=== PATIENT | male | born 1990 | race Caucasian/White ===

== ENCOUNTER 2024-07-13 12:10 | Outpatient (REF) | payer MEDICARE, MEDICAID, SELFPAY ==
[2024-07-13 13:24] LABS: Hematocrit 41.9 % (42.0-52.0); Hemoglobin 13.5 g/dl (14.0-18.0); Mean Corpuscular HGB Conc 32.2 g/dl (31.0-36.0); Mean Corpuscular Hemoglobin 29.9 pg (27.0-33.0); Mean Corpuscular Volume 92.9 fL (80.0-98.0); Mean Platelet Volume 9.8 fL (9.4-12.4); Platelet Count 288 X10*3/uL (160-400); Red Blood Count 4.51 X10*6/uL (4.60-5.80); Red Cell Distribution Width 13.5 % (11.0-16.0); White Blood Count 5.6 X10*3/uL (4.8-10.8)
[2024-07-13 13:30] LABS: Estimated Average Glucose 108 mg/dL; Hemoglobin A1C 121.4948 umol/L; Hemoglobin A1c % 5.4 % (<6.0); Total Hemoglobin (HGBA1C) 3438.0487 umol/L
[2024-07-13 14:09] LABS: Alanine Aminotransferase 26 U/L (0-40); Albumin Level 4.3 g/dL (3.5-5.0); Alkaline Phosphatase 77 U/L (39-117); Anion Gap 10 (12-20); Aspartate Amino Transferase 24 U/L (5-37); Bilirubin Direct < 0.2 mg/dL (0.0-0.5); Bilirubin Total 0.2 mg/dL (0.0-1.0); Blood Urea Nitrogen 5 mg/dL (9-16); Calcium 9.4 mg/dL (8.4-10.2); Carbon Dioxide 29 mmol/L (22-29); Chloride 108 mmol/L (96-108); Cholesterol 147 mg/dL (<200); Estimated Glomerular Filt Rate > 60; Glucose Random 91 mg/dL (60-115); HBS Num1 138.26 mIU/mL (0-7.99); HBc Num1 0.17 S/CO (0.00-0.79); HBsAGNum1 0.33 S/CO (0.00-0.99); HDL Cholesterol 41 mg/dL (>40); HIV AB/AG Nonreactive (Nonreactive); HIV Num 1 0.09 S/CO (0.00-0.99); Hepatitis B Core Antibody Nonreactive (Nonreactive); Hepatitis B Surface Antigen Negative (Negative); LDL Cholesterol Calculated 76 mg/dL (<100); Potassium 3.8 mmol/L (3.3-5.1); Sodium 143 mmol/L (135-145); Total Protein 7.4 g/dL (6.5-8.0); Triglycerides 153 mg/dL (<150); ~Hepatitis B Surface Antibody REACTIVE (Nonreactive); ~Hepatitis C Antibody Nonreactive (Nonreactive)
[2024-07-13 14:11] LABS: Free T4 (Free Thyroxine) 1.02 ng/dL (0.71-1.85); Thyroid Stimulating Hormone 2.24 uIU/mL (0.32-4.0); Vitamin D 25-OH Total 13.2 ng/mL (>30)
--- OUTSIDE RECORDS SUMMARY | 2024-07-13 14:32 | XMS_ITS | Encounter Summary ---
Author Organization [employer] Address [address] [facility] [address] [place] [address] Care Team Providers Care Professor Of Oceanography Name Role Phone Unavailable Primary Care Provider Unavailabl e Reason for Referral * Consultation (Urgent) - Pending Review Specialty Diagnoses / Procedures Referred By Negin magallanes Referred To Contact Urology Diagnoses Encounter for contraceptive management, unspecified type Paulina Wong DO [address] [place] [phone] Phone: tel: fax: Referral ID Status Reason Start Date Expiration Date Visits Requested Visits Authorized [id number] Pending Review Specialty Services Required 07/13/2024 07/13/2025 1 1 * Medications - Closed Specialty Diagnoses / Procedures Referred By Negin magallanes Referred To Contact Diagnoses Moderate persistent asthma without complication Paulina Wong DO [address] [place] [phone] Phone: tel: fax: Referral ID Status Reason Start Date Expiration Date Visits Re quested Visits Authorized [id number] Closed 1 1 Encounter Details Date Type Department Care Team (Latest Contact Info) Description 07/13/2024 10:45 AM EDT Office Visit [facility] [address] [place] [phone] Paulina Wong DO [address] [place] [phone] Routine history and physical examination of adult (Primary Dx); Major depression, recurrent, chronic (CMS/HCC); Moderate persistent asthma without complication; Encounter for contraceptive management, unspecified type; Healthcare maintenance; BMI 35.0-35.9,adult; Obesity, class 1; Encounter for screening for diabetes mellitus; Encounter for screening for other viral diseases; Encounter for screening for infections with a predominantly sexual mode of transmission; Cannabis use, unspecified with withdrawal (CMS/HCC); Anxiety; Dietary counseling; Exercise counseling Social History Tobacco Use Types Packs/Day Years Used Date Smoking Tobacco: Every Day Cigarettes Smokeless Tobacco: Never Alcohol Use Standard Drinks/Week Comments Never 0 (1 standard drink = 0.6 oz pur e alcohol) Depression Answer Date Recorded Patient Health Questionnaire-9 Score 10 07/13/2024 Patient Health Questionnaire-9 Score 10 07/13/2024 Last PHQ-9: Questionnaire Data Not on file 0 07/13/2024 Housing Stability Answer Date Recorded What is your housing situation today? I have gisselle guerra 07/13/[address] you li ve. Do you have problems with any of the following? None of the above 07/13/2024 Food Insecurity Answer Date Recorded Within the past 12 months, y ou worried that your food would run out before you got money to buy more: Never True 07/13/2024 Within the past 12 months,th e food you bought just didn't last and you didn't have enough money to get more: Never True Transportation Answer Date Recorded In the past 12 months, has l ack of transportation kept you from medical appts, meetings, work or from getting things needed for daily living? No 07/13/2024 Utilities Answer Date Recorded In the past 12 months, has t he electric, gas, oil or water company threatened to shut off services in your home? No 07/13/2024 Depression Answer Date Recorded Patient Health Questionnaire-2 Score 4 07/13/2024 Internet Access Answer Date Recorded Internet Access Q1 Yes 07/13/2024 Internet Access Q2 Not on file 07/13/2024 Sex and Gender Information Value Date Recorded Sex Assigned at Male 07/13/2024 11:01 AM EDT Legal Sex Male 11:27 AM EDT Gender Identity Male 07/13/2024 11:01 AM EDT Sexual Orientation Straight 07/13/2024 11 :02 AM EDT documented as of this encounter Last Filed Vital Signs Vital Sign Reading Time Taken Comments Blood Pressure 124/70 07/13/2024 11:23 AM EDT Pulse 88 07/13/2024 11:23 AM EDT Temperature 36.2 ??C (97.1 ??F) 07/13/2024 11:23 AM E DT Respiratory Rate 21 07/13/2024 11:23 AM EDT Oxygen Saturation 96% 07/13/2024 11:23 AM EDT Inhaled Oxygen Concentration - - Weight 103 kg (227 lb) 07/13/2024 11:23 AM EDT Height 170.2 cm (5' 7 ) 07/13/2024 11:23 AM EDT Body Mass Index 35.55 07/13/2024 11:23 AM EDT documented in this encounter Plan of Treatment Scheduled Orders Name Type Priority Associated Diagnoses Orde r Schedule Chlamydia/N. Gonorrhoeae RNA, TMA, Urogenitial Microbiology Routine Routine history and physical examination of adult Major depression, recurrent, chronic (CMS/HCC) Moderate persistent asthma without complication BMI 35.0-35.9,adult Encounter for screening for infections with a predominantly sexual mode of transmission Ordered: 07/13/2024 RPR (Monitor) with Reflex to??Titer Lab Routine Routine history and physical examination of adult Major depression, recurrent, chronic (CMS/HCC) Moderate persistent asthma without complication BMI 35.0-35.9,adult Encounter for screening for infections with a predominantly sexual mode of transmission Expected: 07/13/2024, Expires: 07/13/2025 Hepatitis A Antibody, Total Lab Routine Routine history and physical examination of adult Major depression, recurrent, chronic (CMS/HCC) Moderate persistent asthma without complication BMI 35.0-35.9,adult Expected: 07/13/2024 (Approximate), Expires: 07/13/2025 Varicella zoster antibody, IgG Lab Routine Routine history and physical examination of adult Major depression, recurrent, chronic (CMS/HCC) Moderate persistent asthma without complication BMI 35.0-35.9,adult Expected: 07/13/2024 (Approximate), Expires: 07/13/2025 Measles, Mumps, and Rubella (MMR) Antibodies??(IgG) Panel, Immune Status Lab Routine Routine history and physical examination of adult Major depression, recurrent, chronic (CMS/HCC) Moderate persistent asthma without complication BMI 35.0-35.9,adult Expected: 07/13/2024 (Approximate), Expires: 07/13/2025 T-SPOT??.TB Lab Routine Routine history and physical examination of adult Major depression, recurrent, chronic (CMS/HCC) Moderate persistent asthma without complication BMI 35.0-35.9,adult Expected: 07/13/2024 (Approximate), Expires: 07/13/2025 Scheduled Referrals Name Type Priority Associated Diagnoses Orde r Schedule Referral to Urology Outpatient Referral Urgent Encounter for contraceptive management, unspecified type Expected: 07/13/2024 (Approximate), Expires: 07/13/2025 documented as of this encounter Procedures Procedure Name Priority Date/Time Associated Diagnosis Comments VITAMIN D,25-OH,TOTAL,IA Routine 07/13/2024 12:12 PM EDT Routine history and physical examination of adult Major depression, recurrent, chronic (CMS/HCC) Moderate persistent asthma without complication BMI 35.0-35.9,adult HEPATITIS C AB W/REFL TO HCV RNA, QN, PCR Routine 07/13/2024 12:12 PM EDT Routine history and physical examination of adult Major depression, recurrent, chronic (CMS/HCC) Moderate persistent asthma without complication BMI 35.0-35.9,adult HEPATITIS B SURFACE ANTIGEN, EIA Routine 07/13/2024 12:12 PM EDT Routine history and physical examination of adult Major depression, recurrent, chronic (CMS/HCC) Moderate persistent asthma without complication BMI 35.0-35.9,adult Encounter for screening for other viral diseases HEPATITIS B CORE AB TOTAL Routine 07/13/2024 12:12 PM EDT Routine history and physical examination of adult Major depression, recurrent, chronic (CMS/HCC) Moderate persistent asthma without complication BMI 35.0-35.9,adult Encounter for screening for other viral diseases HIV 1/2 ANTIGEN/ANTIBODY, FOURTH GENERATION W/RFL Routine 07/13/2024 12:12 PM EDT Routine history and physical examination of adult Major depression, recurrent, chronic (CMS/HCC) Moderate persistent asthma without complication BMI 35.0-35.9,adult Cannabis use, unspecified with withdrawal (CMS/HCC) HEPATITIS B SURFACE ANTIBODY, QUALITATIVE Routine 07/13/2024 12:12 PM EDT Routine history and physical examination of adult Major depression, recurrent, chronic (CMS/HCC) Moderate persistent asthma without complication BMI 35.0-35.9,adult Encounter for screening for other viral diseases CBC Routine 07/13/2024 12:12 PM EDT Routine history and physical examination of adult Major depression, recurrent, chronic (CMS/HCC) Moderate persistent asthma without complication BMI 35.0-35.9,adult TSH Routine 07/13/2024 12:12 PM EDT Routine history and physical examination of adult Major depression, recurrent, chronic (CMS/HCC) Moderate persistent asthma without complication BMI 35.0-35.9,adult T4, FREE Routine 07/13/2024 12:12 PM EDT Routine history and physical examination of adult Major depression, recurrent, chronic (CMS/HCC) Moderate persistent asthma without complication BMI 35.0-35.9,adult HEMOGLOBIN A1C Routine 07/13/2024 12:12 PM EDT Routine history and physical examination of adult Major depression, recurrent, chronic (CMS/HCC) Moderate persistent asthma without complication BMI 35.0-35.9,adult Encounter for screening for diabetes mellitus HEPATIC FUNCTION PANEL Routine 07/13/2024 12:12 PM EDT Routine history and physical examination of adult Major depression, recurrent, chronic (CMS/HCC) Moderate persistent asthma without complication BMI 35.0-35.9,adult LIPID PANEL, STANDARD Routine 07/13/2024 12:12 PM EDT Routine history and physical examination of adult Major depression, recurrent, chronic (CMS/HCC) Moderate persistent asthma without complication BMI 35.0-35.9,adult Obesity, class 1 BASIC METABOLIC PANEL Routine 07/13/2024 12:12 PM EDT Routine history and physical examination of adult Major depression, recurrent, chronic (CMS/HCC) Moderate persistent asthma without complication BMI 35.0-35.9,adult documented in this encounter Results * Hepatitis B Core Antibody, Total (07/13/2024 12:12 PM EDT) Pathologist [facility] Hepatitis B Core Antibody Nonreactive Nonreactive [facility] Blood Venous blood specimen / Unknown 07/13/2024 12:12 PM EDT 07/13/2024 1:15 PM EDT Paulina Wong DO LAB BLOOD ORDERABLES Final R esult Performing Organization Address City/[facility]/ZIP Co de Phone Number [facility] [address] [place] [phone] * Hepatitis B Surface Antibody, Qualitative (07/13/2024 12:12 PM EDT) Pathologist [facility] ~Hepatitis B Surface Antibody REACTIVE Nonreactive [facility] Comment:REACTIVE: > 11.99 mI U/mL Blood Venous blood specimen / Unknown 07/13/2024 12:12 PM EDT 07/13/2024 1:15 PM EDT Paulina Wong DO LAB BLOOD ORDERABLES Final R esult Performing Organization Address [facility] Co de Phone Number [facility] [address] [place] [phone] * Hepatitis C Antibody with Reflex to HCV, RNA, Quantitative, Real-Time PCR (07/13/2024 12:12 PM EDT) [facility] Hepatitis C Antibody Nonreactive Nonreactive [facility] Comment:Antibodies to HCV no t detected; does not exclude early acuteHCV infection. Blood Venous blood specimen / Unknown 07/13/2024 12:12 PM EDT 07/13/2024 1:15 PM EDT Paulina Wong DO LAB BLOOD ORDERABLES Final R esult Performing Organization Address City/[facility]/ZIP Co de Phone Number [facility] [address] [place] [phone] * HIV-1/2 Antigen and Antibodies, Fourth Generation, with Reflexes (07/13/2024 12:12 PM EDT) HIV AB/AG Nonreactive Nonreactive [facility] Comment:HIV-1 p24 Ag and/or HIV-1/HIV-2 Ab not detected.A test result that is nonreactive does not exclude thepossibility of exposure to or infection with HIV-1 and/orHIV-2. Nonreactive results in this assay for individualswith prior exposure to HIV-1 and/or HIV-2 may be due toantigen and antibody levels that are below the limit ofdetection of this assay.The Publicate HIV Ag/Ab Combo assay result andsupplemental assay results should be interpreted inconjunction with the patient's clinical presentation,history and other laboratory results. If the results areinconsistent with clinical evidence, additional testing issuggested to confirm the result. Blood Venous blood specimen / Unknown 07/13/2024 12:12 PM EDT 07/13/2024 1:15 PM EDT Paulina Wong DO LAB BLOOD ORDERABLES Final R esult Performing Organization Address City/[facility]/ZIP Co de Phone Number [facility] [address] [place] [phone] * Hepatitis B surface antigen, EIA (07/13/2024 12:12 PM EDT) Pathologist [facility] Hepatitis B Surface Ag Negative Negative [facility] Blood Venous blood specimen / Unknown 07/13/2024 12:12 PM EDT 07/13/2024 1:15 PM EDT Paulina Wong DO LAB BLOOD ORDERABLES Final R esult Performing Organization Address City/[facility]/ZIP Co de Phone Number [facility] [address] [place] [phone] * (ABNORMAL) Basic Metabolic Panel (07/13/2024 12:12 PM EDT) Pathologist [facility] Sodium 143 135 - 145 mmol/L [facility] Potassium 3.8 3.3 - 5.1 mmol/L [facility] Chloride 108 96 - 108 mmol/L [facility] Carbon Dioxide 29 22 - 29 mmol/L [facility] Anion Gap 10(L) 12 - 20 [facility] Urea Nitrogen (BUN) 5(L) 9 - 16 mg/dL [facility] Creatinine, Serum 0.74 0.5 - 1.4 mg/dL [facility] Estimated Glomerular Filt Rate >60 [facility] Comment:Chronic Kidney Disea se: Estimated GFR < 60 mL/min/1.39d9Hgvtqo Kidney Disease: Estimated GFR < 15 mL/min/1.73m2 Glucose 91 60 - 115 mg/dL [facility] Calcium 9.4 8.4 - 10.2 mg/dL [facility] Blood Venous blood specimen / Unknown 07/13/2024 12:12 PM EDT 07/13/2024 1:15 PM EDT us Paulina Wong DO LAB BLOOD ORDERABLES Final R esult [facility] [address] [place] [address] [phone] * (ABNORMAL) CBC (07/13/2024 12:12 PM EDT) Pathologist [facility] White Blood Count 5.6 4.8 - 10.8 X10*3/uL [facility] Red Blood Count 4.51(L) 4.60 - 5.80 X10*6/uL [facility] Hemoglobin 13.5(L) 14.0 - 18.0 g/dl [facility] Hematocrit 41.9(L) 42.0 - 52.0 % [facility] Mean Corpuscular Volume 92.9 80.0 - 98.0 fL [facility] Mean Corpuscular Hemoglobin 29.9 27.0 - 33.0 pg [facility] Mean Corpuscular HGB Conc 32.2 31.0 - 36.0 g/dl [facility] Red Cell Distribution Width 13.5 11.0 - 16.0 % [facility] Platelet Count 288 160 - 400 X10*3/uL [facility] Mean Platelet Volume 9.8 9.4 - 12.4 fL [facility] NRBC Pct Auto 0.0 0.0 - 0.2 /100WBC [facility] NRBC Abs Auto 0.000 0.0 - 0.012 X10*3/uL [facility] Blood Venous blood specimen / Unknown 07/13/2024 12:12 PM EDT 07/13/2024 1:02 PM EDT Paulina Wong DO LAB BLOOD ORDERABLES Final R esult [facility] [address] [place] [address] [phone] * Hemoglobin A1c (07/13/2024 12:12 PM EDT) Hemoglobin A1c 5.4 <6.0 % [facility] Comment:Hemoglobin A1C Refer ence Range Adults: 4.8 - 6.0 % Non diabetic: < 6.0 % Goal: < 7.0 %Additional Action Suggested: > 8.0 %Note: Hemoglobin A1c results are invalid for patients with abnormal amounts of HbF. Blood transfusions may impact the HbA1c concentration in the patient sample. Estimated Average Glucose 108 mg/dL [facility] Comment:eAG = Estimated ave rage glucose which is %A1C expressed asaverage glucose, using the formula of the [id number] Glucose study (ADAG), Diabetes Care, Vol.31,#8,Oct. 2007 Blood Venous blood specimen / Unknown 07/13/2024 12:12 PM EDT 07/13/2024 1:02 PM EDT Paulina Wong DO LAB BLOOD ORDERABLES Final R esult Performing Organization Address [facility] Co de Phone Number [facility] [address] [place] [phone] * Hepatic Function Panel (07/13/2024 12:12 PM EDT) Bilirubin, Total 0.2 0.0 - 1.0 mg/dL [facility] Bilirubin, Direct <0.2 0.0 - 0.5 mg/dL [facility] Aspartate Amino Transferase 24 5 - 37 U/L [facility] Alanine Aminotransferase 26 0 - 40 U/L [facility] Total Protein 7.4 6.5 - 8.0 g/dL [facility] Albumin Level 4.3 3.5 - 5.0 g/dL [facility] Alkaline Phosphatase 77 39 - 117 U/L [facility] Blood Venous blood specimen / Unknown 07/13/2024 12:12 PM EDT 07/13/2024 1:15 PM EDT Paulina Marvin DO LAB BLOOD ORDERABLES Final R esult Performing Organization Address [facility] de Phone Number [facility] [address] [place] [phone] * (ABNORMAL) Vitamin D, 25-Hydroxy, Total, Immunoassay (07/13/2024 12:12 PM EDT) Vitamin D 25-OH Total 13.2(L) >30 ng/mL [facility] Comment: Health Based Reference Values*< 20 ??ng/mL ??Krbzozacw52-95 ng/mL ??Insufficient> 30 ??ng/mL ??Sufficient*Joanna RUTH. N Engl J Med. 2007;357:266-280There is no well-established upper level of normal vitamin Dlevels. Some laboratories use 50 ng/mL as an upper limit ofnormal. However, toxicity is patient-dependent and may occurat any level. Careful correlation with the patient'spresentation is necessary and, if there is concern forvitamin D toxicity, treatment should be consideredirrespective of the serum level.Care must be taken in interpreting Vitamin D results fromdifferent laboratories and methodologies. ??Published datademonstrated that results from patients undergoinghemodialysis may show a negative bias when tested withvarious automated 25-OH vitamin D assays when compared toLC- MS/MS.When testing samples from patients whose predominant form ofVitamin D is Vitamin D2, such as patients receiving VitaminD2 supplementation, results that are subtherapeutic shouldbe confirmed with another method such as LC-MS/MS. Blood Venous blood specimen / Unknown 07/13/2024 12:12 PM EDT 07/13/2024 1:15 PM EDT Paulina Wong DO LAB BLOOD ORDERABLES Final R esult Performing Organization Address [facility] Co de Phone Number [facility] [address] [place] [address] [phone] * TSH (07/13/2024 12:12 PM EDT) Thyroid Stimulating Hormone 2.24 0.32 - 4.0 uIU/mL [facility] Comment:TSH 3rd Generation ( [facility]) Blood Venous blood specimen / Unknown 07/13/2024 12:12 PM EDT 07/13/2024 1:15 PM EDT Paulina Wong DO LAB BLOOD ORDERABLES Final R esult Performing Organization Address [facility] Co de Phone Number [facility] [address] [place] [phone] * (ABNORMAL) Lipid Panel, Standard (07/13/2024 12:12 PM EDT) Triglycerides 153(H) <150 mg/dL [facility] Comment:Desirable Triglyceri de: less than 150 mg/dLBorderline High Triglyceride 150-199 mg/dLHigh Triglyceride: 200-499 mg/dLVery High Triglyceride: greater than or equal to 5OO mg/dL Cholesterol 147 <200 mg/dL [facility] Comment:Desirable Cholestero l: less than 200 mg/dLBorderline High Cholesterol: 200-239 mg/dLHigh Cholesterol: greater than 239 mg/dL LDL Cholesterol Calculated 76 <100 mg/dL [facility] Comment:Desirable LDL: less than 100 mg/dLNear Optimal/Above Optimal LDL: 110- 129 mg/dLBorderline High LDL: 130-159 mg/dLHigh LDL: 160-189 mg/dLVery High LDL: greater than or equal to 190 mg/dL HDL Cholesterol 41 >40 mg/dL [facility] Comment:Desirable HDL: great er than 40 mg/dL Note: This HDL assay may give artificially low results in patients with liver disease. Blood Venous blood specimen / Unknown 07/13/2024 12:12 PM EDT 07/13/2024 1:15 PM EDT Paulina Wong DO LAB BLOOD ORDERABLES Final R esult Performing Organization Address City/[facility] Co de Phone Number [facility] [address] [place] [phone] * T4, Free (07/13/2024 12:12 PM EDT) Free T4 (Free Thyroxine) 1.02 0.71 - 1.85 ng/dL [facility] Blood Venous blood specimen / Unknown 07/13/2024 12:12 PM EDT 07/13/2024 1:15 PM EDT Paulina Wong DO LAB BLOOD ORDERABLES Final R esult Performing Organization Address [facility] Co de Phone Number [facility] [address] [place] [address] [phone] documented in this encounter Visit Diagnoses Diagnosis Encounter for contraceptive management, unspecified type Major depression, recurrent, chronic (CMS/HCC) Moderate persistent asthma without complication BMI 35.0-35.9,adult Obesity, class 1 Cannabis use, unspecified with withdrawal (CMS/[facility]) Anxiety Anxiety state, unspecified documented in this encounter Additional Health Concerns Assessment Noted Time PHQ-9 Depression Total Score: 10 07/13/ 025 11:26 AM EDT documented as of this encounter
--- OUTSIDE RECORDS SUMMARY | 2024-07-13 14:32 | XMS_ITS | Encounter Summary ---
Author Organization [employer] Address [address] [place] [address] Care Team Providers Care Protozoology Teacher Name Role Phone Unavailable Primary Care Provider Unavailabl e Encounter Details Date Type Department Care Team (Latest Contact Info) Description 07/13/2024 Travel Social History Tobacco Use Types Packs/Day Years [...] AM EDT documented as of this encounter Plan of Treatment Not on file documented as of this encounter Visit Diagnoses Not on filedocumented in this encounter Additional Health Concerns Assessment Noted Time PHQ-9 Depression Total Score: 10 07/13/2 025 11:26 AM EDT documented as of this encounter
--- OUTSIDE RECORDS SUMMARY | 2024-07-13 14:33 | XMS_ITS | Clinical Summary ---
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 025 Active lamoTRIgine (LaMICtal) 200 MG tablet take 1 tablet by mouth once nightly 025 Active OLANZapine (ZyPREXA) 5 MG tablet Take 1 tablet by mouth at bedtime. 025 Active prazosin (Minipress) 2 MG capsule TAKE 4 CAPSULE BY MOUTH EVERY NIGHT AT BEDTIME 025 Active buPROPion XL (Wellbutrin XL) 150 MG 24 hr tablet Take 150 mg by mouth in the morning. 024 Active budesonide-form oterol (Symbicort) 160-4.5 MCG/ACT inhaler Inhale 2 puffs in the morning and at bedtime. Rinse mouth with water after use to reduce aftertaste and incidence of candidiasis. Do not swallow. 1 each Active albuterol 108 (90 Base) MCG/ACT inhaler Inhale 2 puffs every 4 (four) hours if needed for wheezing or shortness of breath. 18 g 025 Active montelukast (Singulair) 10 MG tablet Take 1 tablet (10 mg) by mouth at bedtime. 30 tablet 025 Active albuterol (2.5 MG/3ML) 0.083% nebulizer solutionIndicat ions:Moderate persistent asthma without complication Take 3 mL (2.5 mg) by nebulization every 4 (four) hours if needed for wheezing or shortness of breath. 75 mL 1 025 2025 Active budesonide-form oterol (Symbicort) 160-4.5 MCG/ACT inhaler 024 2024 Discontinued(R eorder (will not trigger notification to Pharmacy)) montelukast (Singulair) 10 MG tablet Take 10 mg by mouth at bedtime. 025 2024 Discontinued(R eorder (will not trigger notification to Pharmacy)) albuterol 1.25 MG/3ML nebulizer solution USE 1 VIAL VIA NEBULIZER EVERY 4 HOURS NEEDED FOR WHEEZ 2024 Discontinued albuterol 108 (90 Base) MCG/ACT inhaler INHALE TWO PUFFS BY MOUTH EVERY 2 HOURS NEEDED FOR WHEEZING. 2024 Discontinued(R eorder (will not trigger notification to Pharmacy)) Active Problems Problem Noted Date Diagnosed Date Major depression, recurrent, chronic 07/13/2024 Anxiety 07/13/2024 Tobacco dependence 07/13/2024 Moderate persistent asthma 07/13/2024 BMI 35.0-35.9,adult 07/13/2024 Encounters Date Type Department Care Team Description 07/13/2024 10:45 AM EDT Office Visit [address] [address] Paulina Wong DO Routine history and physical examination of adult [...] withdrawal (CMS/HCC); Anxiety; Dietary counseling; Exercise counseling 07/13/2024 Travel 07/01/[address] [facility] [address], [place] [phone] Paulina Wong DO Pre-visit Planning (SDOH will need to be completed in office. ) 05/01/2024 [facility] [address] [place] [address] [place] [address] Anuel Verdugo MD New patient appt. from Last 3 Months Immunizations Name Administration Dates Next Due Hep B, adult 02/14/2016,05/23/2015 Influenza, IIV3, injectable 04/29/2015 Influenza, seasonal, injectable, preservative fr ee 01/06/2016 Pneumococcal Conjugate PCV 20 07/13/2024 Td (adult), 5 Lf tetanus tox oid, preservative free, adsorbed 05/13/2015,03/10/2014 Tdap 07/13/2024 Family History Medical History Relation Name Comments Asthma Father Seizures Mother Relation Name Status Comments Father Mother Social History Tobacco Use Types Packs/Day Years [...] is your housing situation today? I have gisselleenmanuel guerra 07/13/[address] you [...] Orientation Straight 07/13/2024 11 :02 AM EDT Last Filed Vital Signs Vital Sign Reading [...] Mass Index 35.55 07/13/2024 11:23 AM EDT Plan of Treatment Health Maintenance Due Date Last Done Comments HIV Screening 1989 07/13/2024 Lipid Panel 1989 07/13/2024 Alcohol/Substance Use Screening 2001 Family Planning (PISQ) 01/24/2004 Hepatitis C Screening 2007 07/13/2024 Hepatitis B Vaccines (3 of 3 - 19+ 3-dose series) 04/10/2016 02/14/2016, 05/23/2015 COVID-19 Vaccine ( - 2023-2 5 season) 2023 Influenza Vaccine (#1) 2023 6, 04/29/2015 Depression Screening 07/13/2025 07/13/2024, 07/13/2024 SDOH Screening 07/13/2025 07/13/2024 Tobacco Screening 07/13/2025 07/13/2024 DTaP/Tdap/Td Vaccines (2 - T d or Tdap) 07/13/2034 07/13/2024, 05/13/2015, 03/10/2014 Zoster Vaccines (1 of 2) 2039 RSV Patients and Patients Aged 60 years or older (1 - 1-dose 75+ series) 01/24/2064 Pneumococcal Vaccine: Pediatrics (0 to 5 Years) and At-Risk Patients (6 to 49) Years) Completed 07/13/2024 HIB Vaccines Aged Out No longer eligi ble based on patient's age to complete this topic HPV Vaccines Aged Out No longer eligi ble based on patient's age to complete this topic Hepatitis A Vaccines Aged Out No long er eligible based on patient's age to complete this topic IPV Vaccines Aged Out No longer eligi ble based on patient's age to complete this topic Meningococcal Vaccine Aged Out No wesley brant eligible based on patient's age to complete this topic RSV under 20 months Aged Out No longe r eligible based on patient's age to complete this topic Rotavirus Vaccines Aged Out No longer eligible based on patient's age to complete this topic Procedures Procedure Name Priority Date/Time Associated Diagnosis Comments HEPATITIS B CORE AB TOTAL Routine 07/13/2024 12:12 PM EDT Routine history and physical examination of adult Major depression, recurrent, chronic (CMS/HCC) Moderate persistent asthma without complication BMI 35.0-35.9,adult Encounter for screening for other viral diseases HEPATITIS B SURFACE ANTIBODY, QUALITATIVE Routine 07/13/2024 12:12 PM EDT Routine history and physical examination of adult Major depression, recurrent, chronic (CMS/HCC) Moderate persistent asthma without complication BMI 35.0-35.9,adult Encounter for screening for other viral diseases HEPATITIS C AB W/REFL TO HCV RNA, QN, PCR Routine 07/13/2024 12:12 PM EDT Routine history and physical examination of adult Major depression, recurrent, chronic (CMS/HCC) Moderate persistent asthma without complication BMI 35.0-35.9,adult HIV 1/2 ANTIGEN/ANTIBODY, FOURTH GENERATION W/RFL Routine 07/13/2024 12:12 PM EDT Routine history and physical examination of adult Major depression, recurrent, chronic (CMS/HCC) Moderate persistent asthma without complication BMI 35.0-35.9,adult Cannabis use, unspecified with withdrawal (CMS/HCC) HEPATITIS B SURFACE ANTIGEN, EIA Routine 07/13/2024 12:12 PM EDT Routine history and physical examination of adult Major depression, recurrent, chronic (CMS/HCC) Moderate persistent asthma without complication BMI 35.0-35.9,adult Encounter for screening for other viral diseases BASIC METABOLIC PANEL Routine 07/13/2024 12:12 PM EDT Routine history and physical examination of adult Major depression, recurrent, chronic (CMS/HCC) Moderate persistent asthma without complication BMI 35.0-35.9,adult CBC Routine 07/13/2024 12:12 PM EDT Routine [...] Moderate persistent asthma without complication BMI 35.0-35.9,adult VITAMIN D,25-OH,TOTAL,IA Routine 07/13/2024 12:12 PM EDT [...] without complication BMI 35.0-35.9,adult Obesity, class 1 T4, FREE Routine 07/13/2024 12:12 PM EDT Routine history and physical examination of adult Major depression, recurrent, chronic (CMS/HCC) Moderate persistent asthma without complication BMI 35.0-35.9,adult from Last 3 Months Results * (ABNORMAL) Vitamin D, 25-Hydroxy, Total, Immunoassay (07/13/2024 12:12 PM EDT) Vitamin D 25-OH Total 13.2(L) >30 ng/mL [facility] Comment: Health Based Reference Values*< 20 ??ng/mL ??[id number] ng/mL ??Insufficient> 30 ??ng/mL ??Sufficient*Joanna RUTH. N [...] DO LAB BLOOD ORDERABLES Final R esult [facility] [address] [place] [phone] * Hepatitis C Antibody with Reflex to HCV, RNA, Quantitative, Real-Time PCR (07/13/2024 12:12 PM EDT) Hepatitis C Antibody Nonreactive Nonreactive [facility] Comment:Antibodies to HCV no t detected; does not exclude early acuteHCV infection. Blood Venous blood specimen / Unknown 07/13/2024 12:12 PM EDT 07/13/2024 1:15 PM EDT Paulina Marvin LAB BLOOD ORDERABLES Final R esult Performing Organization Address City/[facility] Co de Phone Number [facility] [address] [place] [phone] * Hepatitis B surface antigen, EIA (07/13/2024 12:12 PM EDT) Hepatitis B Surface Ag Negative Negative [facility] Blood Venous blood specimen / Unknown 07/13/2024 12:12 PM EDT 07/13/2024 1:15 PM EDT Paulina Wong LAB BLOOD ORDERABLES Final R esult Performing Organization Address [facility] Co de Phone Number [facility] [address] [place] [phone] * Hepatitis B Core Antibody, Total (07/13/2024 12:12 PM EDT) Hepatitis B Core Antibody Nonreactive Nonreactive [facility] Blood Venous blood specimen / Unknown 07/13/2024 12:12 PM EDT 07/13/2024 1:15 PM EDT Paulina Lunaseble LAB BLOOD ORDERABLES Final R esult Performing Organization Address [facility] Co de Phone Number [facility] [address] [place] [phone] * HIV-1/2 Antigen and Antibodies, Fourth Generation, with Reflexes (07/13/2024 12:12 PM EDT) HIV AB/AG Nonreactive Nonreactive [facility] Comment:HIV-1 p24 Ag and/or HIV-1/HIV-2 Ab not detected.A test result that is nonreactive does not exclude thepossibility of exposure to or infection with HIV-1 and/orHIV-2. Nonreactive results in this assay for individualswith prior exposure to HIV-1 and/or HIV-2 may be due toantigen and antibody levels that are below the limit ofdetection of this assay.The [employer] HIV Ag/Ab Combo assay result andsupplemental assay results should be interpreted inconjunction with the patient's clinical presentation,history and other laboratory results. If the results areinconsistent with clinical evidence, additional testing issuggested to confirm the result. Blood Venous blood specimen / Unknown 07/13/2024 12:12 PM EDT 07/13/2024 1:15 PM EDT Paulina Wong DO LAB BLOOD ORDERABLES Final R esult Performing Organization Address City/[facility]/ZIP Co de Phone Number [facility] [address] [place] [phone] * Hepatitis B Surface Antibody, Qualitative (07/13/2024 12:12 PM EDT) Pathologist [facility] ~Hepatitis B Surface Antibody REACTIVE Nonreactive [facility] Comment:REACTIVE: > 11.99 mI U/mL Blood Venous blood specimen / Unknown 07/13/2024 12:12 PM EDT 07/13/2024 1:15 PM EDT Paulina Wong DO LAB BLOOD ORDERABLES Final R esult Performing Organization Address [facility]/ZIP Co de Phone Number [facility] [address] [place] [phone] * (ABNORMAL) CBC (07/13/2024 12:12 PM EDT) Pathologist [facility] White Blood Count 5.6 4.8 - 10.8 X10*3/uL [facility] Red Blood Count 4.51(L) 4.60 - 5.80 X10*6/uL [facility] Hemoglobin 13.5(L) 14.0 - 18.0 g/dl [facility] Hematocrit 41.9(L) 42.0 - 52.0 % [facility] Mean Corpuscular Volume 92.9 80.0 - 98.0 fL [facility] Mean Corpuscular Hemoglobin 29.9 27.0 - 33.0 pg [facility] Mean Corpuscular HGB Conc 32.2 31.0 - 36.0 g/dl [facility] Red Cell Distribution Width 13.5 11.0 - 16.0 % [facility] Platelet Count 288 160 - 400 X10*3/uL [facility] Mean Platelet Volume 9.8 9.4 - 12.4 fL [facility] NRBC Pct Auto 0.0 0.0 - 0.2 /100WBC [facility] NRBC Abs Auto 0.000 0.0 - 0.012 X10*3/uL [facility] Blood Venous blood specimen / Unknown 07/13/2024 12:12 PM EDT 07/13/2024 1:02 PM EDT Paulina Wong LAB BLOOD ORDERABLES Final R esult Performing Organization Address City/[facility]/ZIP Co de Phone Number [facility] [address] [place] [phone] * TSH (07/13/2024 12:12 PM EDT) Thyroid Stimulating Hormone 2.24 0.32 - 4.0 uIU/mL [facility] Comment:TSH 3rd Generation ( [facility]) Blood Venous blood specimen / Unknown 07/13/2024 12:12 PM EDT 07/13/2024 1:15 PM EDT Paulina Wong DO LAB BLOOD ORDERABLES Final R esult [facility] [address] [place] [phone] * T4, Free (07/13/2024 12:12 PM EDT) [facility] Free T4 (Free Thyroxine) 1.02 0.71 - 1.85 ng/dL [facility] Blood Venous blood specimen / Unknown 07/13/2024 12:12 PM EDT 07/13/2024 1:15 PM EDT Paulina Wong DO LAB BLOOD ORDERABLES Final R esult Performing Organization Address City/[facility]/ZIP Co de Phone Number [facility] [address] [place] [phone] * Hemoglobin A1c (07/13/2024 12:12 PM EDT) [facility] Hemoglobin A1c 5.4 <6.0 % [facility] Comment:Hemoglobin A1C Refer ence Range Adults: 4.8 - 6.0 % Non diabetic: < 6.0 % Goal: < 7.0 %Additional Action Suggested: > 8.0 %Note: Hemoglobin A1c results are invalid for patients with abnormal amounts of HbF. Blood transfusions may impact the HbA1c concentration in the patient sample. Estimated Average Glucose 108 mg/dL [facility] Comment:eAG = Estimated ave rage glucose which is %A1C expressed asaverage glucose, using the formula of the C6T-UpufmfjOtsfnyk Glucose study (ADAG), Diabetes Care, Vol.31,#8,Oct. 2007 Blood Venous blood specimen / Unknown 07/13/2024 12:12 PM EDT 07/13/2024 1:02 PM EDT Paulina Wong DO LAB BLOOD ORDERABLES Final R esult Performing Organization Address City/[facility]/ZIP Co de Phone Number [facility] [address] [place] [phone] * Hepatic Function Panel (07/13/2024 12:12 PM EDT) Bilirubin, Total 0.2 0.0 - 1.0 mg/dL [facility] Bilirubin, Direct <0.2 0.0 - 0.5 mg/dL [facility] Aspartate Amino Transferase 24 5 - 37 U/L [facility] Alanine Aminotransferase 26 0 - 40 U/L [facility] Total Protein 7.4 6.5 - 8.0 g/dL [facility] Albumin Level 4.3 3.5 - 5.0 g/dL [facility] Alkaline Phosphatase 77 39 - 117 U/L [facility] Blood Venous blood specimen / Unknown 07/13/2024 12:12 PM EDT 07/13/2024 1:15 PM EDT us Paulina Wong DO LAB BLOOD ORDERABLES Final R esult [facility] [address] [place] [phone] * (ABNORMAL) Lipid Panel, Standard (07/13/2024 12:12 PM EDT) Triglycerides 153(H) <150 mg/dL [facility] Comment:Desirable Triglyceri de: less than 150 mg/dLBorderline High Triglyceride 150-199 mg/dLHigh Triglyceride: 200-499 mg/dLVery High Triglyceride: greater than or equal to 5OO mg/dL Cholesterol 147 <200 mg/dL [facility] Comment:Desirable Cholestero l: less than 200 mg/dLBorderline High Cholesterol: 200-239 mg/dLHigh Cholesterol: greater than 239 mg/dL LDL Cholesterol Calculated 76 <100 mg/dL [facility] Comment:Desirable LDL: less than 100 mg/dLNear Optimal/Above Optimal LDL: 110- 129 mg/dLBorderline High LDL: 130-159 mg/dLHigh LDL: 160-189 mg/dLVery High LDL: greater than or equal to 190 mg/dL HDL Cholesterol 41 >40 mg/dL [facility] Comment:Desirable HDL: great er than 40 mg/dL Note: This HDL assay may give artificially low results in patients with liver disease. Blood Venous blood specimen / Unknown 07/13/2024 12:12 PM EDT 07/13/2024 1:15 PM EDT Paulina Wong DO LAB BLOOD ORDERABLES Final R esult Performing Organization Address [facility] Co de Phone Number [facility] [address] [place] [phone] * (ABNORMAL) Basic Metabolic Panel (07/13/2024 12:12 PM EDT) Sodium 143 135 - 145 mmol/L [facility] Potassium 3.8 3.3 - 5.1 mmol/L [facility] Chloride 108 96 - 108 mmol/L [facility] Carbon Dioxide 29 22 - 29 mmol/L [facility] Anion Gap 10(L) 12 - 20 [facility] Urea Nitrogen (BUN) 5(L) 9 - 16 mg/dL [facility] Creatinine, Serum 0.74 0.5 - 1.4 mg/dL [facility] Estimated Glomerular Filt Rate >60 [facility] Comment:Chronic Kidney Disea se: Estimated GFR < 60 mL/min/1.77n6Lentrc Kidney Disease: Estimated GFR < 15 mL/min/1.73m2 Glucose 91 60 - 115 mg/dL [facility] Calcium 9.4 8.4 - 10.2 mg/dL [facility] Blood Venous blood specimen / Unknown 07/13/2024 12:12 PM EDT 07/13/2024 1:15 PM EDT Paulina Wong DO LAB BLOOD ORDERABLES Final R esult Performing Organization Address [facility]/ZIP Co de Phone Number [facility] [address] [place] [phone] from Last [address] [facility] STANDARD MEDICARE
--- OUTSIDE RECORDS SUMMARY | 2024-07-13 14:33 | XMS_ITS | Clinical Summary ---
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 Role Phone Unavailable Primary Care Provider Unavailabl e Social History Tobacco Use Types Packs/Day Years Used Date Smoking Tobacco: Never Assessed Sex and Gender Information Value Date Recorded Sex Assigned at Not on file Legal Sex Male 2:14 AM EST Gender Identity Not on file Sexual Orientation Not on file Plan of Treatment Health Maintenance Due Date Last Done Comments DTaP,Tdap,and Td Vaccines (1 - Tdap) 01/24/2008 Hepatitis B Vaccines (1 of 3 - 19+ 3-dose series) 01/24/2008 COVID-19 Vaccine (2023-2 5 season) 2023 Influenza Vaccine (Season Ended) 2024 HIB Vaccines Aged Out No longer eligi [...] on patient's age to complete this topic MMR Vaccines Aged Out No longer eligi ble based on patient's age to complete this topic Meningococcal ACWY Vaccine Aged Out N o longer eligible based on patient's age to complete this topic Meningococcal B Vaccine Aged Out No l onger eligible based on patient's age to complete this topic Pneumococcal Vaccine: Pediat rics (0 to 5 Years) and At-Risk Patients (6 to 64 Years) Aged Out No longer eligible b ased on patient's age to complete this topic RSV Immunization Patients Un mike 20 months Aged Out No longer eligible b ased on patient's age to complete this topic Varicella Vaccines Aged Out No longer eligible based on patient's age to complete this topic
[2024-07-14 07:44] LABS: Hepatitis A Antibody IgG Nonreactive (Nonreactive); ~Hepatitis A Antibody IgG 0.43 S/CO (0.00-0.99)
[2024-07-14 09:54] LABS: Varicella IgG Antibody 2.64 S/CO
[2024-07-14 10:50] LABS: Iron 62 mcg/dL (45-160); Percent Iron Saturation 20 % (15-50); Total Iron Binding Capacity 308 mcg/dL (228-428); Unsaturated Iron Binding 246 ug/dL
[2024-07-14 11:05] LABS: Ferritin 74 ng/mL (20-250)
[2024-07-14 11:47] LABS: RPR Rapid Plasma Reagin NON-REACTIVE (NON-REACTIVE)
[2024-07-14 22:04] LABS: Mumps Virus IgG Antibody <9.00 AU/mL; Rubella IgG Antibody <0.90 Index
[2024-07-15 18:08] LABS: TS Negative Control Passed; TS Panel A 0; TS Panel B 0; TS Positive Control Passed; TSpotTB Negative (Negative)
== END 2024-07-13 12:11 | disposition home or self-care (01) ==
LOC: HO.HHCL 12:10
PROVIDERS: Visit Provider Family Medicine
DX: Z00.00 Encounter for general adult medical examination without abnormal findings (principal); F33.9 Major depressive disorder, recurrent, unspecified; J45.40 Moderate persistent asthma, uncomplicated; Z68.35 Body mass index [BMI] 35.0-35.9, adult; Z13.1 Encounter for screening for diabetes mellitus; Z11.59 Encounter for screening for other viral diseases; Z11.3 Encounter for screening for infections with a predominantly sexual mode of transmission; F12.93 Cannabis use, unspecified with withdrawal; E66.811 Obesity, class 1; D64.9 Anemia, unspecified; Z72.89 Other problems related to lifestyle
CPT/HCPCS: 36415; 80048; 80061; 80076; 82306; 82728; 83036; 83540; 84439; 84443; 85027; 86481; 86592; 86704; 86706; 86708; 86735; 86762; 86765; 86787; 86803; 87340; 87389